=== PATIENT | female | born 1955 | race Caucasian/White ===

== ENCOUNTER 2016-08-16 11:21 | Observation (INO) | payer OTHER ==
[~2016-08-16] VITALS: Ht 154.9 cm; Wt 57.5 kg
[~2016-08-16 11:21] MED LIST: ADVAIR 100-501 EACH IH; ADVAIR 250/501 DISK IH; ALBUTEROL17 GM IH; NAPROSYN500 MG PO; NOHOMEMEDS; PERCOCET 5-3251 EACH PO; PREDNISONE10 MG PO
[2016-08-16 11:48] LABS: HEMATOCRIT 43.7 % (36.0-46.0); MCH 30.4 PG (29.0-34.0); MCHC 33.2 G/DL (30.0-36.0); MCV 91.6 FL (83-99); MEAN PLAT.VOLUME 11.3 uM^3 (9.5-12.4); PLATELET COUNT 243 K/uL (156-360); RBC DIS.WIDTH-CV 12.6 % (11.8-14.6); RBC DIS.WIDTH-SD 42.9 % (39-53); RED BLOOD COUNT 4.77 M/uL (3.80-5.20); WHITE BLOOD COUNT 12.8 K/uL (4.1-10.2)
[2016-08-16 11:59] LABS: CHLORIDE 105 mEq/L (99-109); SODIUM 141 mEq/L (136-147)
[2016-08-16 12:01] LABS: GLUCOSE 119 mg/dL (70-99)
[2016-08-16 12:02] LABS: ANION GAP 14 MEQ/L (2-14)
[2016-08-16 12:05] LABS: GFR ESTIMATE (CALCULATED) > 59 mL/min/
[2016-08-16 12:06] LABS: UREA NITROGEN (BUN) 16 mg/dL (9-23)
[2016-08-16 12:09] LABS: TROP-I INTERPRETATION NEGATIVE; TROPONIN-I 0.01 ng/mL (0.0-0.30)
[2016-08-16 13:45] VITALS: BP 118/51
[2016-08-16 14:06] LABS: POINT-OF-CARE METER ID UU13113831
[2016-08-16 16:19] VITALS: BP 104/50
[2016-08-16 20:00] VITALS: BP 118/56
[2016-08-16 20:13] LABS: TROP-I INTERPRETATION NEGATIVE; TROPONIN-I 0.02 ng/mL (0.0-0.30)
[2016-08-17 03:55] VITALS: BP 122/56
[2016-08-17 05:27] LABS: TROP-I INTERPRETATION NEGATIVE; TROPONIN-I < 0.01 ng/mL (0.0-0.30)
[2016-08-17 08:43] VITALS: BP 117/55
[2016-08-17] MEDS ORDERED: NICOTINE PATCH1 EAC2 TD (10:10)
[2016-08-17] MEDS ORDERED: NEBULIZER MC (10:10)
[2016-08-17] MEDS ORDERED: PREDNISONE10 MG PO (10:10)
[2016-08-17] MEDS ORDERED: ALBUTEROL2.5 MG/3 M IH (10:10)
[2016-08-17] MEDS ORDERED: ZITHROMAX TRI-500 MG PO (10:10)
[2016-08-17 12:12] VITALS: BP 131/63
== END 2016-08-17 16:57 | disposition home or self-care (01) ==
LOC: EME 11:21 → EDOF 12:27 → 5WEST 13:43
PROVIDERS: Internal Medicine; Nurse Practitioner Family
DX: J45.901 Unspecified asthma with (acute) exacerbation (principal); F17.200 Nicotine dependence, unspecified, uncomplicated
CPT/HCPCS: 71020; 71275; 80048; 82948; 84484; 85027; 93005; 94640; 94640 76; 99202; 99281; 99285; G0378; J0696; J1650; J2765; J2930; J3475; J7030; J7050

== ENCOUNTER 2017-02-06 12:26 | Emergency (ER) | payer OTHER ==
[~2017-02-06] VITALS: Ht 154.9 cm; Wt 60.4 kg
[~2017-02-06 12:26] MED LIST changes: +ALBUTEROL2.5 MG/3 M IH; +NEBULIZER MC; +NICOTINE PATCH1 EAC2 TD; +ZITHROMAX TRI-500 MG PO
[2017-02-06 13:04] LABS: BASOPHIL COUNT 0.1 K/uL (0-0.1); EOSINOPHIL COUNT 0.4 K/uL (0-0.3); HEMATOCRIT 40.6 % (36.0-46.0); IMMATURE GRANULOCYTE (%) 0.3 % (0.0-0.7); INSTRUMENT ABS NEUTROPHIL CT 5.4 K/uL; LYMPHOCYTE COUNT 2.8 K/uL (1.0-2.8); MCH 29.8 PG (29.0-34.0); MCHC 33.5 G/DL (30.0-36.0); MEAN PLAT.VOLUME 10.8 uM^3 (9.5-12.4); MONOCYTE (%) 6.2 % (3-12); MONOCYTE COUNT 0.6 K/uL (0-0.8); NEUTROPHIL (%) 58.9 % (45-76); NEUTROPHIL COUNT 5.4 K/uL (1.8-6.4); PLATELET COUNT 229 K/uL (156-360); RBC DIS.WIDTH-CV 12.4 % (11.8-14.6); RBC DIS.WIDTH-SD 40.7 % (39-53); RED BLOOD COUNT 4.56 M/uL (3.80-5.20); WHITE BLOOD COUNT 9.2 K/uL (4.1-10.2)
[2017-02-06 13:14] LABS: CHLORIDE 105 mEq/L (99-109); POTASSIUM 4.7 mEq/L (3.7-5.4); SODIUM 139 mEq/L (136-147)
[2017-02-06 13:16] LABS: GLUCOSE 120 mg/dL (70-99)
[2017-02-06 13:18] LABS: ANION GAP 11 MEQ/L (2-14)
[2017-02-06 13:20] LABS: ALKALINE PHOSPHATASE 107 IU/L (3-129); GFR ESTIMATE (CALCULATED) > 59 mL/min/
[2017-02-06 13:21] LABS: UREA NITROGEN (BUN) 16 mg/dL (9-23)
[2017-02-06 13:34] LABS: ADD MIUA? YES; BILIRUBIN NEGATIVE; BLOOD NEGATIVE; COLOR LT YELLOW ((YELLOW)); GLUCOSE (STRIP) NEGATIVE; KETONES NEGATIVE; LEUKOCYTES MODERATE; NITRITE NEGATIVE; PROTEIN (STRIP) NEGATIVE; SPECIFIC GRAVITY 1.005 (1.000-1.030); UROBILINOGEN 0.2 MG/DL (0.2-1.0)
[2017-02-06 13:44] LABS: BACTERIA RARE /HPF; CALCIUM OXALATE CRYSTALS 1+ /HPF; EPITHELIAL CELLS 1+ /HPF; MUCUS NONE SEEN /LPF; UCUL ADDED? NO; WHITE BLOOD CELLS 0-5 /HPF (0-5)
[2017-02-06] MEDS ORDERED: TYLENOL REGULA325 MG PO (15:10)
[2017-02-06 15:17] VITALS: BP 149/92
== END 2017-02-06 15:18 | disposition home or self-care (01) ==
LOC: EME 12:26
PROVIDERS: Physician Assistant
DX: S16.1XXA Strain of muscle, fascia and tendon at neck level, initial encounter (principal); R10.11 Right upper quadrant pain; V43 Car occupant injured in collision with car, pick-up truck or van; J45.909 Unspecified asthma, uncomplicated; E11.9 Type 2 diabetes mellitus without complications; Z88.6 Allergy status to analgesic agent
CPT/HCPCS: 72125; 74177; 80053; 81003; 85025; 99281; 99284; J7050; J7120